=== PATIENT | male | born 1975 | race American Indian/Alaskan Native ===

== ENCOUNTER 2022-08-05 12:39 | Emergency (ER) | payer OTHER ==
[~2022-08-05] VITALS: Ht 188 cm; Wt 123.4 kg
[2022-08-05] MEDS ORDERED: PREDNISONE20 MG PO (17:32)
== END 2022-08-05 17:39 | disposition home or self-care (01) ==
LOC: ED 12:39
DX: M54.16 Radiculopathy, lumbar region (principal)
CPT/HCPCS: 72100; 99283-25